=== PATIENT | female | born 1990 | race African-American/Black ===

== ENCOUNTER 2016-12-30 15:41 | Emergency (ER) | payer MEDICAID ==
[~2016-12-30] VITALS: Ht 170.2 cm; Wt 62.6 kg
--- NOTE | 2016-12-30 15:59 | NUR ---
Patient discharged to home in stable conditon. Written and verbal after care instructions given. Patient verbalizes understanding of instructions. Prescription provided per MD's order. No further questions or concerns noted prior on leaving the ED.
[2016-12-30 16:00] VITALS: BP 119/62
== END 2016-12-30 16:01 | disposition home or self-care (01) ==
LOC: ER 15:41
DX: K08.89 Other specified disorders of teeth and supporting structures (principal); L03.211 Cellulitis of face
CPT/HCPCS: A4663

== ENCOUNTER 2017-03-28 13:40 | Emergency (ER) | payer MEDICAID ==
[~2017-03-28] VITALS: Ht 170.2 cm; Wt 66.7 kg
--- NOTE | 2017-03-28 14:11 | NUR ---
Pt c/o left eye irritation, facial skin dryness, and waking up w/ PEREZ last 3 days. Pt denies CP, SOB, dizziness, n/v, no other complaints, no distress noted.
--- NOTE | 2017-03-28 14:20 | NUR ---
Vision screening uncorrected in left (affective) -- pt could not read any letters. Right eye -- corrected w/contact -- Addendum: 03/28/17 at 1637 by [email or web address] correction: right eye affected. left eye w/contact .
[2017-03-28] MEDS ORDERED: TETRACAINE HCL 0.5% OPHT DROP 2 ML BOTTLE OP ONE (16:00)
[2017-03-28] MEDS ORDERED: FLUORESCEIN SODIUM 1 MG STRIP OP ONE (16:00)
[2017-03-28] MEDS ORDERED: TETRACAINE HCL 0.5% OPHT DROP 2 ML BOTTLE ONE (16:02)
[2017-03-28] MEDS ORDERED: FLUORESCEIN SODIUM 1 MG STRIP ONE (16:02)
--- NOTE | 2017-03-28 16:03 | NUR ---
Gave pt d/c instructions, verbalized understanding.
== END 2017-03-28 16:05 | disposition home or self-care (01) ==
LOC: ER 13:40
DX: H10.9 Unspecified conjunctivitis (principal)
CPT/HCPCS: A4663

== ENCOUNTER 2017-05-24 21:28 | Emergency (ER) | payer MEDICAID ==
[~2017-05-24] VITALS: Ht 170.2 cm; Wt 59.0 kg
[2017-05-24] MEDS ORDERED: TETRACAINE HCL 0.5% OPHT DROP 2 ML BOTTLE OP ONE (22:00)
[2017-05-24] MEDS ORDERED: TETRACAINE HCL 0.5% OPHT DROP 2 ML BOTTLE ONE (22:08)
[2017-05-24] MEDS ORDERED: FLUORESCEIN SODIUM 1 MG STRIP OP ONE (22:30)
[2017-05-24] MEDS ORDERED: FLUORESCEIN SODIUM 1 MG STRIP ONE (22:33)
[2017-05-24] MEDS ORDERED: HYDROCODONE/APAP 5-325MG TABLET PO ONE (22:45)
--- NOTE | 2017-05-24 22:54 | NUR ---
Patient discharged to home in stable conditon. Written and verbal after care instructions given. Patient verbalizes understanding of instructions.
[2017-05-24] MEDS ORDERED: HYDROCODONE/APAP 5-325MG TABLET ONE (23:04)
== END 2017-05-24 22:56 | disposition home or self-care (01) ==
LOC: ER 21:29
DX: H16.001 Unspecified corneal ulcer, right eye (principal); R51 Headache
CPT/HCPCS: A4663